=== PATIENT | female | born 1995 | race African-American/Black ===

== ENCOUNTER 2016-11-24 04:09 | Inpatient (IN) | payer OTHER ==
[2016-11-24] MEDS ORDERED: OXYTOCIN/DEXTROSE 5%-WATER 30 UNITS/500 ML BAG IV ONE ×2 (04:42→15:03)
[2016-11-24] MEDS ORDERED: RINGER'S SOLUTION,LACTATED 1,000 ML IV ONE (04:42)
[2016-11-24] MEDS ORDERED: LIDOCAINE HCL 50 ML VIAL PERI PRN (04:42)
[2016-11-24] MEDS ORDERED: DEXTROSE 5%-LACTATED RINGERS 500 ML IV PRN (04:43)
[2016-11-24] MEDS: DEXTROSE 5%-LACTATED RINGERS 1,000 ML IV PRN ×2 (05:30→10:11)
[2016-11-24] MEDS ORDERED: ONDANSETRON HCL/PF 2 MG/ML VIAL IV PRN ×2 (08:31→09:35)
[2016-11-24] MEDS: RINGER'S SOLUTION,LACTATED 1,000 ML IV PRN ×2 (08:47→13:28)
--- NOTE | 2016-11-24 09:19 | PN ---
Progess Note - Interim Narrative: 11/24/16 09:17 Subjective-feeling uncomfortable with contractions Objective- SVE- 4/80/-2, amniotomy performed, clear fluid with bloody show FHTs- 120s, moderate variability, no decelerations, positive accelerations [place]- q 2 minutes Assessment and plan- Labor- spontaneous GBS status- neg Continue current plan of care.
[2016-11-24] MEDS ORDERED: BUPIVACAINE HCL/0.9 % NACL/PF 250 ML EP PRN (09:35)
[2016-11-24] MEDS ORDERED: NALOXONE HCL 1 MG/1 ML SYRG IV PRN (09:35)
[2016-11-24] MEDS ORDERED: fentaNYL CITRATE/PF 50 MCG/ML AMPUL IT SCH (09:45)
--- NOTE | 2016-11-24 10:10 | OR ---
Anesthesia Procedure Note - Anesthesia Procedure Note Narrative: Vital Signs - Last Taken Temp 36.7 C 11/24/16 09:36 Pulse 73 11/24/16 09:36 Resp 18 11/24/16 09:36 BP 116/72 11/24/16 09:36 Pulse Ox 99 11/24/16 09:36 11/24/16 10:09 ANESTHESIA PROCEDURE NOTE Date of Procedure: 11/24/2016 Time of procedure: 0950. Performed by: Vinicio Roque CRNA Registered Representative: None. Preprocedure diagnosis: Active labor. Post procedure diagnosis: Same. Procedure: Insertion of labor epidural. Indications: The patient is a 20 -year-old prima para female in active labor requesting labor epidural for pain management. Findings: See below. Details of the procedure: The patient was placed in a sitting position. Back was prepped with DuraPrep. Patient was then draped in a sterile fashion. Lidocaine 1% was infiltrated to the skin and subcutaneous tissues at the level of the L3 4 interspace. The epidural space was identified using a 18-gauge Tuohy needle with [id number] technique. 20 mcg fentanyl was given intrathecally using a 27 ga. spinal needle. Epidural catheter was inserted without difficulty. Negative test dose was elicited using 5 mL of 1.5% preservative-free lidocaine plus epinephrine 1 200,000. The epidural catheter was then taped and secured in place. EBL: Minimal. Fluids: N/A. Specimen: N/A. Post procedure condition: The patient tolerated the procedure well. No complications were noted. Thank you for this consultation. Olsen CRNA
[2016-11-24] MEDS ORDERED: CALCIUM CARBONATE 500 MG TAB.CHEW PO PRN (11:55)
[2016-11-24] MEDS ORDERED: GLYCERIN/WITCH HAZEL LEAF 40 APPL BOX TP PRN (15:03)
[2016-11-24] MEDS ORDERED: BENZOCAINE/MENTHOL 81 SPRAY CAN TP PRN (15:03)
[2016-11-24] MEDS ORDERED: BISACODYL 10 MG SUPP.RECT RC PRN (15:03)
[2016-11-24] MEDS ORDERED: SENNOSIDES 8.6 MG TABLET PO PRN (15:03)
[2016-11-24] MEDS ORDERED: HYDROCORTISONE 30 APPL TUBE TP PRN (15:03)
[2016-11-24] MEDS ORDERED: oxyCODONE HCL/ACETAMINOPHEN 1 TAB TABLET PO PRN ×2 (15:03)
--- NOTE | 2016-11-24 15:08 | OR ---
Operative Report - Dictated Report Narrative: Spontaneous Vaginal Delivery Viable female with APGARS of 9 at 1 min and 9 at 5 min. Delivered with 1437. Presentation was ROCIO. Loose nuchal cord was reduced and anterior and posterior shoulder delivered without difficulty followed by the remainder of the baby. The baby was placed on the maternal abdomen. The cord was clamped and cut after ~60 seconds. Weight: 2900grams, 6 lbs 6.2 oz Placenta was delivered spontaneously and intact. 1st degree midline vaginal and BL periurethral lacerations that are hemostatic without repair. Estimated blood loss: 150 ml Mother and baby tolerated delivery well. History for Definition: * The number of deliveries resulting in a live the patient experienced prior to current hospitalization * The previous delivery of live twins or any live multiple gestation is considered one live event. *If primagravida or nulliparous is documented select zero for the number of previous live births. Live Events: 0
[2016-11-24] MEDS: CEFOXITIN SODIUM 2 GM in DEXTROSE 5 % IN WATER 100 ML IV SCH ×4 (15:33→20:48)
[2016-11-24 17:17] LABS: Hematocrit 31.4 % (37.0-47.0); Hemoglobin 10.5 gm/dL (12.5-16.0); Mean Cell Volume 82.2 fl (78-100); Mean Corpuscular Hemoglobin 27.5 pg (27-31); Mean Corpuscular Hgb Conc 33.4 g/dl (32-36); Mean Platelet Volume 8.8 fl (6.0-9.5); Platelet Count 195 K/mm3 (150-450); Red Blood Count 3.82 M/mm3 (4.2-5.4)
[2016-11-24 17:24] LABS: Total Cells Counted 100
[2016-11-24 17:52] LABS: Band 9 % (0-2.0); Immature Granulocyte 3 (0-1); Lymphocyte 6 % (20-51); Monocyte 11 % (0-9); Neutrophil 71 % (42-75); Neutrophil # 11.4 K/mm3 (1.3-6.0)
[2016-11-24 17:53] LABS: Dohle Bodies 1+; Toxic Granulation Trace
[2016-11-24 17:54] LABS: Platelet Estimate Normal (NORMAL); RBC Morphology Normal (NORMAL)
[2016-11-24] MEDS: DOCUSATE SODIUM 100 MG CAPSULE PO SCH (20:46)
[2016-11-24] MEDS: IBUPROFEN 800 MG TABLET PO PRN (23:58)
[2016-11-25] MEDS: CEFOXITIN SODIUM 2 GM in DEXTROSE 5 % IN WATER 100 ML IV SCH ×4 (03:09→09:41)
[2016-11-25] MEDS: DOCUSATE SODIUM 100 MG CAPSULE PO SCH ×2 (09:41→21:38)
--- NOTE | 2016-11-25 13:22 | PN ---
Subjective - Date and Time Seen Date: 11/25/16 Subjective Narrative: day 1, s/p currently on cefoxitin 2 q6h for fever in labor. afebrile today. no complaints. breast feeding. normal lochia. ambulating well. Objective - Vitals Vitals: Last Vital Signs Temp 36.8 C 11/25/16 09:57 Pulse 83 11/25/16 09:57 Resp 18 11/25/16 09:57 BP 101/53 11/25/16 09:57 Pulse Ox 99 11/25/16 09:57 - Abnormal Lab Findings Abnormal Lab Findings: Abnormal Lab Results 11/24/16 Range/Units 15:18 WBC 16.0 H (4.0-10.5) K/mm3 RBC 3.82 L (4.2-5.4) M/mm3 Hgb 10.5 L (12.5-16.0) gm/dL Hct 31.4 L (37.0-47.0) % Band Neuts % (Manual) 9 H (0-2.0) % Lymphocytes % (Manual) 6 L (20-51) % Monocytes % (Manual) 11 H (0-9) % Immature Granulocytes 3 H (0-1) Neutrophils # (Manual) 11.4 H (1.3-6.0) K/mm3 Lymphocytes # (Manual) 1.0 L (1.5-3.5) k/mm3 Monocytes # (Manual) 1.8 H (0.0-1.0) k/mm3 - Exam Constitutional: Present: Alert, Oriented x3, Cooperative Respiratory: Present: no respiratory distress Cardiovascular/Chest: Present: normal peripheral pulses Abdomen: Present: soft, nontender, nondistended, other - fundus firm below umbilicus Extremity: Present: normal range of motion, non-tender, normal inspection Skin Exam: Present: normal color, warm/dry, no cyanosis Eye contact: Present: cooperative, good eye contact, normal speech Cauti Physician Documentation - Urinary Catheter Management Urethral ([place]) Date of Insertion: 11/24/16 Time of Insertion: 10:49 Date of Removal: 11/24/16 Time of Removal: 14:25 Assessment/Plan Plan Narrative: A: PPD#1, s/p , on cefoxitin 2 g q6h for fever in labor, received 4 doses now. currently afebrile and stable. Plan: will stop antibiotic. routine care. ambulation encouraged. Merly Garrett MD
[2016-11-26] MEDS ORDERED: ACETAMINOPHEN 325 MG TABLET PO STA (04:33)
[2016-11-26 05:44] LABS: Urine Bilirubin Negative (NEGATIVE); Urine Blood 250 /ul (NEGATIVE); Urine Ketone Negative (NEGATIVE); Urine Nitrite Negative (NEGATIVE); Urine Protein Negative (NEGATIVE); Urine Urobilinogen Normal (NORMAL)
[2016-11-26 06:14] LABS: Urine Appearance Clear; Urine Bacteria None Seen; Urine Color Yellow; Urine WBC 0-5 /hpf (0-5)
[2016-11-26] MEDS: DOCUSATE SODIUM 100 MG CAPSULE PO SCH ×2 (11:14→22:03)
[2016-11-26 11:27] LABS: Hematocrit 29.2 % (37.0-47.0); Hemoglobin 9.8 gm/dL (12.5-16.0); Mean Cell Volume 83.2 fl (78-100); Mean Corpuscular Hemoglobin 27.9 pg (27-31); Mean Corpuscular Hgb Conc 33.6 g/dl (32-36); Mean Platelet Volume 8.7 fl (6.0-9.5); Neutrophil # 8.6 K/mm3 (1.3-6.0); Platelet Count 174 K/mm3 (150-450); Red Blood Count 3.51 M/mm3 (4.2-5.4); Red Cell Distribution Width 14.2 % (11.5-14.0); White Blood Count 10.7 K/mm3 (4.0-10.5)
[2016-11-26] MEDS: ACETAMINOPHEN 325 MG TABLET PO PRN ×3 (11:30→20:02)
--- NOTE | 2016-11-26 14:13 | PN ---
Subjective - Date and Time Seen Date: 11/26/16 Subjective Narrative: day 2, s/p with fever. was started on cefoxitin 2 g iv q6h x 4 doses after delivery for low grade fever noted after delivery. was afebrile on PPD#1 and cefoxitin was discontinued on PPD#1. developed high fever 39.2 at 4:24 am today. had a headache with the fever. fever subsided after taking tylenol. denies perineum pain(first degree lac and periurethral laceration repaired), urinary symptoms, breast symptoms (except nipple pain from breast feeding). admitted to throat itching and discomfort, but no major sore throat. had sick contact with a 7-year-old cousin who visited her after delivery and who turned out to have a strep throat. patient's father may have a cold and she had hugged him. she is . has normal lochia. has no other complaints. Objective - Vitals Vitals: Last Vital Signs Temp 38.2 C H 11/26/16 13:05 Pulse 120 H 11/26/16 13:05 Resp 18 11/26/16 13:05 BP 107/61 11/26/16 13:05 Pulse Ox 98 11/26/16 13:05 - Abnormal Lab Findings Abnormal Lab Findings: Abnormal Lab Results 11/26/16 11/26/16 Range/Units 05:22 11:23 WBC 10.7 H D (4.0-10.5) K/mm3 RBC 3.51 L (4.2-5.4) M/mm3 Hgb 9.8 L (12.5-16.0) gm/dL Hct 29.2 L (37.0-47.0) % RDW 14.2 H (11.5-14.0) % Immature Gran % (Auto) 0.70 H (0.001-0.429) % Immature Gran # (Auto) 0.07 H (0.000-0.0310) K/mm3 Neutrophils % 80.0 H (42-75.0) % Lymphocytes % 7.4 L (20-51) % Monocytes % 11.2 H (0.0-9) % Neutrophils # 8.6 H (1.3-6.0) K/mm3 Lymphocytes # 0.8 L (1.5-3.5) k/mm3 Monocytes # 1.2 H (0.0-1.0) k/mm3 Urine Blood 250 H (NEGATIVE) /ul Urine RBC 5-10 H (0-5) /hpf Urine Comment Culture ordered L - Exam Constitutional: Present: Alert, Oriented x3, Cooperative ENT Exam: Present: pharyngeal erythema Breasts: Present: Nontender, Other - normal, no erythema, no lump or induration. Nipples normal Respiratory: Present: lungs clear, normal breath sounds, no respiratory distress , No rales, No wheezing Cardiovascular/Chest: Present: regular rate, rhythm, no murmur Abdomen: Present: soft, nontender, nondistended, other - fundus firm, non- tender and below umbilicus. no CVA tenderness /Rectal: Present: Other - exam deferred due to no discomfort Extremity: Present: non-tender, normal inspection, no pedal edema, no calf tenderness Skin Exam: Present: normal color, warm/dry, no cyanosis Appearance: Present: appropriate appearance Eye contact: Present: cooperative, good eye contact, normal speech Cauti Physician Documentation - Urinary Catheter Management Urethral ([place]) Date of Insertion: 11/24/16 Time of Insertion: 10:49 Date of Removal: 11/24/16 Time of Removal: 14:25 Assessment/Plan Plan Narrative: Placental culture: no growth preliminary. CXR: negative. A/P: PPD#2, s/p with high fever 39.2. Sources of fever unknown: Unlikely from uterus, UTI, breast or wound (perineum repair). Most likely cause of fever: upper respiratory infection. Most likely due to viral infection. CBC showed elevated monocytes. Blood culture and urine culture sent. Strep test and respiratory panel sent. will hold antibiotics for now. tylenol for fever. continue if peds allowed. routine care. will not discharge patient until 24 hour afebrile. Merly Garrett MD
[2016-11-26] MEDS: IBUPROFEN 800 MG TABLET PO PRN (17:28)
[2016-11-27] MEDS: IBUPROFEN 800 MG TABLET PO PRN ×3 (01:44→23:55)
[2016-11-27 08:04] LABS: Hematocrit 30.6 % (37.0-47.0); Hemoglobin 10.1 gm/dL (12.5-16.0); Mean Cell Volume 84.3 fl (78-100); Mean Corpuscular Hemoglobin 27.8 pg (27-31); Neutrophil % 80.3 % (42-75.0); Platelet Count 183 K/mm3 (150-450); Red Blood Count 3.63 M/mm3 (4.2-5.4); Red Cell Distribution Width 14.4 % (11.5-14.0); White Blood Count 8.7 K/mm3 (4.0-10.5)
[2016-11-27 08:20] LABS: Albumin * 2.4 gm/dl (3.4-5.0); Anion Gap 13.9 mmol/L (6.8-13.8); Bilirubin, Total 0.4 mg/dL (0.0-1.1); Ca. Corrected For Albumin 9.2 mg/dL (8.4-10.2); Calcium * 8.2 mg/dL (7.9-10.9); Carbon Dioxide 24.8 mmol/L (24-32.6); Potassium 3.7 mmol/L (3.4-4.6); Total Protein 6.7 gm/dL (6.2-8.2)
[2016-11-27] MEDS: DOCUSATE SODIUM 100 MG CAPSULE PO SCH ×2 (11:38→22:53)
--- NOTE | 2016-11-27 14:17 | PN ---
Subjective - Date and Time Seen Date: 11/27/16 Subjective Narrative: day 3, s/p with fever on PPD 0-2, afebrile today. received cefoxitine 2 g iv q6h x 2 doses after delivery for fever noted after delivery, discontinued on PPD#1. temp max on PPD#2: 39.4 at 17:41 (11/26/09) afebrile since last night at 19:50. source of fever: unknown, likely due to URI (viral). had some throat itching and discomfort yestereday, but resolving now. no complains of breast, UTI, or wound (perineum repair) symptoms. Rapid strep test: negative respiratory panels all negative, including chamydia pneumonae, adenovirus, influenza A and B, RSV, rhinovirus. placenta culture: no growth urine and blood culture: no growth (preliminary) CXR: normal patient is doing much better. no complaints. . normal lochia. Objective - Vitals Vitals: Last Vital Signs Temp 37.6 C H 11/27/16 12:00 Pulse 95 11/27/16 08:13 Resp 18 11/27/16 08:13 BP 91/55 11/27/16 08:13 Pulse Ox 100 11/27/16 08:13 - Abnormal Lab Findings Abnormal Lab Findings: Abnormal Lab Results 11/27/16 11/27/16 Range/Units 07:58 07:58 RBC 3.63 L (4.2-5.4) M/mm3 Hgb 10.1 L (12.5-16.0) gm/dL Hct 30.6 L (37.0-47.0) % RDW 14.4 H (11.5-14.0) % Immature Gran % (Auto) 0.90 H (0.001-0.429) % Immature Gran # (Auto) 0.08 H (0.000-0.0310) K/mm3 Neutrophils % 80.3 H (42-75.0) % Lymphocytes % 7.1 L (20-51) % Monocytes % 10.8 H (0.0-9) % Neutrophils # 7.0 H (1.3-6.0) K/mm3 Lymphocytes # 0.6 L (1.5-3.5) k/mm3 Anion Gap 13.9 H (6.8-13.8) mmol/L ALT 18 L (19-67) U/L Albumin 2.4 L (3.4-5.0) gm/dl - Exam Constitutional: Present: Alert, Oriented x3, Cooperative Respiratory: Present: lungs clear, normal breath sounds, no respiratory distress , no accessory muscle use Abdomen: Present: soft, nontender, nondistended, other - fundus firm and non- tender. no CVA tenderness. Extremity: Present: normal range of motion, no pedal edema, no calf tenderness Skin Exam: Present: normal color, warm/dry, no cyanosis Appearance: Present: appropriate appearance Eye contact: Present: cooperative, good eye contact, normal speech Cauti Physician Documentation - Urinary Catheter Management Urethral ([place]) Date of Insertion: 11/24/16 Time of Insertion: 10:49 Date of Removal: 11/24/16 Time of Removal: 14:25 Assessment/Plan Plan Narrative: A/P: PPD#3, s/p with fever day 0-2, afebrile today. s/p cefoxitin 2 g iv q6h x 4 doses after delivery. Source of fever unknown, likely viral URI. no evidence of chorioamnionitis, endometritis, UTI, mastitis etc all tests negative, including CXR, blood/urine/placenta culture, Strep A, influenza A and B etc. will be OK for discharge if afebrile x 24 hours. possible discharge tonight. Merly Garrett MD
[2016-11-27] MEDS: ACETAMINOPHEN 325 MG TABLET PO PRN ×2 (15:24→19:30)
[2016-11-27 16:50] LABS: Urine Appearance Cloudy; Urine Bilirubin Negative (NEGATIVE); Urine Color Yellow
[2016-11-27 16:51] LABS: Urine Blood 250 /ul (NEGATIVE); Urine Ketone Negative (NEGATIVE); Urine Nitrite Negative (NEGATIVE); Urine Protein 30 mg/dL (NEGATIVE); Urine Specific Gravity 1.015 SP.GR. (1.005-1.010); Urine Urobilinogen Normal (NORMAL); Urine pH 8.5 pH (5.0-7.0)
[2016-11-27 16:52] LABS: Urine WBC >50 /hpf (0-5)
[2016-11-27 16:53] LABS: Urine Bacteria 1+
[2016-11-27 21:17] LABS: Urine Appearance Slightly Cloudy; Urine Color Yellow
[2016-11-27 21:18] LABS: Urine Bilirubin Negative (NEGATIVE); Urine Nitrite Negative (NEGATIVE); Urine Protein 100 mg/dL (NEGATIVE); Urine Specific Gravity 1.025 SP.GR. (1.005-1.010); Urine Urobilinogen Normal (NORMAL)
[2016-11-27 21:19] LABS: Urine Bacteria None Seen; Urine Blood 10 /ul (NEGATIVE); Urine Ketone 5 mg/dL (NEGATIVE); Urine WBC 0-5 /hpf (0-5)
[2016-11-27 21:22] LABS: Urine RBC 0-5 /hpf (0-5)
--- NOTE | 2016-11-27 22:27 | CONS ---
[facility] - General Date of Service: 11/27/16 Narrative: Ms. Baker is a 20-yr-old AA female pt of Dr. Clarisse Ruiz whom FM/IM is consulted on for persistent fevers with unrevealing diagnostic testing/labs and is PPD #3. Pt's history indicate she had a successful vaginal delivery here at [facility] on 11/24/16. It is reported at the end of labour, she was febrile with a temp of 38.9 and fevers have been persistent and off and on since then. According to Dr. Garrett, the evaluation and work-up for sources of infection have been unrevealing this far. She has received a total of 4 doses of empiric IV antibiotics with Cefotixin 2 g. The last fever she had was 39.1 at 19.45. Her WBC has been trending down; 16.0--->10.7---> 8.7 & all other lab- work have been unremarkable. The preliminary blood culture results do not show any pathogens. Source: patient Exam Limitations: no limitations - History of Present Illness Timing/Duration: other - fevers for the past 3 days of hospitalization. Severity: mild Modifying Factors - (Worsens): Reports: medication Associated Symptoms: fever/chills, headaches, other - night sweats Allergies/Adverse Reactions: Allergies No Known Allergies Allergy (Verified 11/24/16 04:17) Home Medications: Home Medications Medication Instructions Recorded Last Taken Ferrous Sulfate [Iron] 325 mg PO DAILY 11/24/16 11/23/16 Vits96/Iron Fum/Folic 1 tab PO DAILY 11/24/16 11/23/16 [ S] - Patient's Past Medical History Patient History - Medical: Anxiety, Depression Patient History - Cardiac/Respiratory: No pertinent hx Patient History - Cancer: No Hx of Cancer Patient History - Surgical Procedures: No surgical history Patient History - Other: None LMP (females 10-50): this week - Family History Father Family History - Medical: No pertinent hx Mother Family History - Medical: No pertinent hx - Social History Living Situations: significant other Abuse History: No History of abuse Psych History: Hx of Anxiety, Hx of Depression Does anyone smoke in the home?: No Smoking Status: Never smoker Medications - Medications Current Medications: Current Medications Acetaminophen (Tylenol) 650 mg PO Q4H PRN PRN Reason: Fever Stop: 12/26/16 11:02 Last Admin: 11/27/16 19:30 Dose: 650 mg Benzocaine/Menthol (Dermoplast [place]) 1 spray TP PRN PRN PRN Reason: Perineal discomfort Stop: 12/24/16 15:04 Last Admin: 11/24/16 19:31 Dose: 1 spray Docusate Sodium (Colace) 100 mg PO BID BOUBACAR Stop: 12/24/16 21:01 Last Admin: 11/27/16 11:38 Dose: Not Given Oxytocin/Dextrose (Pitocin 30 Units/D5w 500 Ml) 30 units in 500 mls @ 1 mls/hr IV PRN ONE PRN Reason: Protocol Stop: 12/15/16 00:41 Last Admin: 11/24/16 05:48 Dose: 2 mls/hr Oxytocin/Dextrose (Pitocin 30 Units/D5w 500 Ml) 30 units in 500 mls @ 1 mls/hr IV PRN ONE Stop: 12/15/16 11:02 Last Admin: 11/25/16 09:40 Dose: Not Given Ibuprofen (Motrin) 800 mg PO Q6H PRN PRN Reason: Mild pain Stop: 12/24/16 15:04 Last Admin: 11/27/16 17:48 Dose: 800 mg Senna (Senokot) 8.6 mg PO BID PRN PRN Reason: Constipation Stop: 12/24/16 15:04 Last Admin: 11/27/16 17:01 Dose: 8.6 mg Witch Virgie/Glycerin (Tucks Medicated Pads) 1 appl TP PRN PRN PRN Reason: Perineal discomfort Stop: 12/24/16 15:04 Last Admin: 11/24/16 19:31 Dose: 1 appl Review of Systems - Review of Systems Generalized/Overall Review: Present: Chills, Fever. Absent: Weakness, Malaise, Diaphoresis, Weight loss EENTM: Present: Ear Pain. Absent: Blurred Vision, Double Vision, Ear Discharge , Nose Congestion Respiratory: Absent: Cough, Shortness of Breath, Orthopnea Cardiac: Absent: Chest Pain, Edema, Palpitations Abdominal: Absent: Nausea, Vomiting, Hematemesis, Abdominal Pain, Constipation, Diarrhea Genitourinary: Absent: Burning, Itching, Urgency, Frequency Musculoskeletal: Absent: Joint Pain, Back Pain, Joint Swelling, Muscle Pain, Neck Pain Neurological: Present: Headache - one episode of PHIPPS after the fever., Anxiety, Depressed. Absent: Numbness, Tingling Skin: Absent: Dryness, Lesions, Lumps, Rash, Bruising Endocrine: Present: No Symptoms Reported Misc: All systems neg except as marked Physical Examination - Exam Vital Signs: Vital Signs - Last Taken Temp 37.1 C 11/27/16 20:50 Pulse 118 H 11/27/16 19:46 Resp 16 11/27/16 19:46 BP 103/53 11/27/16 19:46 Pulse Ox 99 11/27/16 19:46 O2 Oxygen Delivery Method Room Air Constitutional: Present: Alert, Oriented x3, Cooperative, No distress ENT Exam: Present: other - Both RT and LT Ear canal erythema. Absent: nasal congestion, nasal drainage, pharyngeal erythema Eye Exam: bilateral eye: normal inspection, PERRL Neck: Present: non-tender, full range of motion, supple, normal inspection. Absent: lymphadenopathy (R), lymphadenopathy (L) Breasts: Present: Exam deferred Respiratory: Present: lungs clear, no accessory muscle use, No rales Cardiovascular/Chest: Present: normal peripheral pulses, regular rate, rhythm, no chest tenderness, no edema, no murmur Abdomen: Present: Normal bowel sounds, soft, nontender /Rectal: Present: Exam deferred Extremity: Present: non-tender, normal inspection, no pedal edema. Absent: calf tenderness Skin Exam: Present: warm/dry, no cyanosis Lymphatic: Present: no adenopathy Neurologic: Present: no motor/sensory deficits, alert, normal mood/affect, oriented x 3 Appearance: Present: appropriate appearance, appropriate insight Eye contact: Present: cooperative, good eye contact, normal speech Thoughts: Present: normal thought pattern, no apparent hallucination - Results and Findings: Lab/Microbiology results last 24 hrs: Abnormal/Pending Laboratory Last 24 HRS 11/27/16 11/27/16 11/27/16 21:00 16:34 07:58 RBC Hgb Hct RDW Immature Gran % (Auto) Immature Gran # (Auto) Neutrophils % Lymphocytes % Monocytes % Neutrophils # Lymphocytes # Anion Gap 13.9 H ALT 18 L Albumin 2.4 L Urine Protein 100 H 30 H Urine Blood 10 H 250 H Prot Sulfosalicylic Acd 4+ H Ur Leukocyte Esterase 75 H Urine RBC 10-25 H Urine WBC >50 H Urine Bacteria 1+ H 11/27/16 07:58 RBC 3.63 L Hgb 10.1 L Hct 30.6 L RDW 14.4 H Immature Gran % (Auto) 0.90 H Immature Gran # (Auto) 0.08 H Neutrophils % 80.3 H Lymphocytes % 7.1 L Monocytes % 10.8 H Neutrophils # 7.0 H Lymphocytes # 0.6 L Anion Gap ALT Albumin Urine Protein Urine Blood Prot Sulfosalicylic Acd Ur Leukocyte Esterase Urine RBC Urine WBC Urine Bacteria Culture 11/24/16 15:05 - Final No Growth 11/24/16 15:05 - Final Maternal No Growth 11/26/16 05:22 Urine Culture - Preliminary Urine,Clean Catch No Growth 11/26/16 05:00 Blood Culture - Preliminary Blood NO GROWTH 24 HOURS - Assessments/Findings (1) Pyrexia of unknown origin following delivery Diagnosis(s): Pt is a 20-yr old AA female who has had persistent fevers since delivery and the Diagnostic work-up & evaluation for infections by Dr. Garrett have been negative. Additionally the CXR, and viral respiratory panel were done and they were non-acute. The fevers do not seem to have any pattern but they have been present for the last 3 days during hospitalization. She reports that the only ill contact she had was her 8-yr old niece that she shared bed with prior to coming to the hospital and was found to have strep throat the following day. She states that the fevers are accompanied by RT & LT earache and she first noticed the aching yesterday. She cannot recall if she has continued to have earache as, before & after the fevers, she has felt very fatigued. With today's fevers, she says that she actually 'felt better' than any other day. On physical exam, she is noted to have have erythema on RT & LT earcanal and therefore otitis externa/media could be the cause of fevers and will start her on Augmentin. In trying to determine other sources of fevers, she denies any recent surgery, outside the country travel, insect/tick bites, recreational drug use, STDs abdominal disorders,recreational drug use. Family history is non-contributory of autoimmune or malignancy disease as she was adopted. She lacks the triad symptoms: headache, neck stiffness & Altered Mental Status to cause suspicion of bacterial/viral meningitis but will check CRP level. Since she had epidural catheter placement during delivery, this is a risk factor for Spinal Epidural Abscess (SEA). Although, the risk has been reported to be lower when catheters are placed for shorter periods as in obstetrical cases. She has no neurological deficits and no back pain, but with her persistent fevers, it is important to note the the initial clinical manifestation of SEA can be non- specific and may begin with fevers. Will therefore check ESR level first to determine the need for an urgent MRI. Should the above tests come back negative and fevers persist , other evaluation of non-infectious inflammatory source in a young adult can include: REGGIE, & Rheumatoid factor. The next approach is watchful waiting as the fevers may resolve spontaneously or if fevers persist, it may take several weeks of investigation until definite diagnosis and at that point, consultation with ID, Legal Collector or facilities assistant/onc. may be considered. It is important to note that pts who remain undiagnosed after an extensive evaluation generally have good prognosis. Problem: Acute (2) Otitis externa Diagnosis(s): RT & LT ear canal noted to be erythemic. Due to fevers, Will start Augmentin 875 /125 b.i.d x 10 days. Problem: Acute
[2016-11-27] MEDS: AMOX TR/POTASSIUM CLAVULANATE 875 MG TABLET PO SCH (22:57)
[2016-11-28] MEDS: ACETAMINOPHEN 325 MG TABLET PO PRN ×3 (01:54→19:23)
[2016-11-28] MEDS: IBUPROFEN 800 MG TABLET PO PRN ×2 (05:59→18:20)
[2016-11-28 08:29] LABS: Hematocrit 30.5 % (37.0-47.0); Hemoglobin 10.1 gm/dL (12.5-16.0); Mean Cell Volume 83.3 fl (78-100); Mean Corpuscular Hemoglobin 27.6 pg (27-31); Mean Corpuscular Hgb Conc 33.1 g/dl (32-36); Mean Platelet Volume 8.9 fl (6.0-9.5); Platelet Count 189 K/mm3 (150-450); Red Blood Count 3.66 M/mm3 (4.2-5.4); Red Cell Distribution Width 14.4 % (11.5-14.0); White Blood Count 8.3 K/mm3 (4.0-10.5)
[2016-11-28 08:35] LABS: Total Cells Counted 100
[2016-11-28 08:53] LABS: Atypical (Reactive) Lymph 1 % (0-2); Band 12 % (0-2.0); Eosinophil 1 % (0-3); Immature Granulocyte 1 (0-1); Lymphocyte 18 % (20-51); Monocyte 4 % (0-9); Neutrophil 63 % (42-75); Neutrophil # 5.2 K/mm3 (1.3-6.0)
[2016-11-28 09:03] LABS: Microcytosis 1+; Platelet Estimate Normal (NORMAL); Spherocyte Trace
[2016-11-28] MEDS: DOCUSATE SODIUM 100 MG CAPSULE PO SCH ×2 (09:23→20:55)
[2016-11-28] MEDS: AMOX TR/POTASSIUM CLAVULANATE 875 MG TABLET PO SCH (09:23)
--- NOTE | 2016-11-28 12:42 | PN ---
Subjective - Date and Time Seen Date: 11/28/16 Subjective Narrative: day 4, s/p with persistent fever on PPD 0-3, afebrile today. usually spiked a high fever in the afternoon. Tmax 39.5 yesterday afternoon. received cefoxitine 2 g iv q6h x 2 doses after delivery for fever noted after delivery, discontinued on PPD#1. afebrile since last night at 19:46. received one dose of tylenol 650 mg at 1:54 and one dose of ibuprofen 800 mg at 5:59 today. patient feels well overall without major complaints. was having throat itching and discomfort 2 days ago, but has resoved. denies complains of pelvic pain, perineum pain, back pain, breast pain, or UTI symptoms. is . has normal lochia. baby is doing well, s/p antibiotics. source of fever: unknown, likely due to viral URI. I had requested consultation from hospitalist last night in conjunction with early childhood education instructor doctor, Dr. Monroe. patient was started on augmentin by the hospitalist BRIANNE Pollard last night for suspicion of otitis media. Dr. Monroe saw and examined the patient today. He said there was no signs of ear infection and this is likely viral infection; he would like to discontinue the antibiotics. Tests were all negative so far. white count returned to normal. Strep screen: negative respiratory panels all negative, including chamydia pneumonae, adenovirus, influenza A and B, RSV, rhinovirus. Dare screen: negative placenta culture: no growth urine and blood culture: no growth CXR: normal Objective - Vitals Vitals: Last Vital Signs Temp 37.9 C H 11/28/16 12:00 Pulse 100 11/28/16 12:00 Resp 20 11/28/16 12:00 BP 106/62 11/28/16 12:00 Pulse Ox 99 11/28/16 12:00 - Abnormal Lab Findings Abnormal Lab Findings: Abnormal Lab Results 11/27/16 11/27/16 11/28/16 Range/Units 16:34 21:00 08:15 RBC 3.66 L (4.2-5.4) M/mm3 Hgb 10.1 L (12.5-16.0) gm/dL Hct 30.5 L (37.0-47.0) % RDW 14.4 H (11.5-14.0) % Band Neuts % (Manual) 12 H (0-2.0) % Lymphocytes % (Manual) 18 L (20-51) % ESR (0-15) mm/hr C-Reactive Prot, Quant (0.0-0.9) mg/dL Urine Protein 30 H 100 H (NEGATIVE) mg/dL Urine Blood 250 H 10 H (NEGATIVE) /ul Prot Sulfosalicylic Acd 4+ H (0) mg/dL Ur Leukocyte Esterase 75 H (NEGATIVE) /ul Urine RBC 10-25 H (0-5) /hpf Urine WBC >50 H (0-5) /hpf Urine Bacteria 1+ H (NONE) 11/28/16 11/28/16 Range/Units 08:15 08:15 RBC (4.2-5.4) M/mm3 Hgb (12.5-16.0) gm/dL Hct (37.0-47.0) % RDW (11.5-14.0) % Band Neuts % (Manual) (0-2.0) % Lymphocytes % (Manual) (20-51) % ESR 81 H (0-15) mm/hr C-Reactive Prot, Quant 19.4 H (0.0-0.9) mg/dL Urine Protein (NEGATIVE) mg/dL Urine Blood (NEGATIVE) /ul Prot Sulfosalicylic Acd (0) mg/dL Ur Leukocyte Esterase (NEGATIVE) /ul Urine RBC (0-5) /hpf Urine WBC (0-5) /hpf Urine Bacteria (NONE) - Exam Constitutional: Present: Alert, Oriented x3, Cooperative ENT Exam: Present: other - unremarkable per Dr. Monroe Breasts: Present: Other - normal and non-tender Respiratory: Present: lungs clear, normal breath sounds, no respiratory distress , no accessory muscle use, No rales, No wheezing Cardiovascular/Chest: Present: regular rate, rhythm, no murmur Abdomen: Present: Normal bowel sounds, soft, nontender, nondistended, other - fundus firm and non-tender. no pelvic tenderness. no CVA tenderness /Rectal: Present: Other - unremarkable per night nurse Kristy. Extremity: Present: normal range of motion, no pedal edema, no calf tenderness Skin Exam: Present: normal color, warm/dry, no cyanosis Appearance: Present: appropriate appearance Eye contact: Present: cooperative, good eye contact, normal speech Cauti Physician Documentation - Urinary Catheter Management Urethral ([place]) Date of Insertion: 11/24/16 Time of Insertion: 10:49 Date of Removal: 11/24/16 Time of Removal: 14:25 Assessment/Plan Plan Narrative: A/P: PPD#4, s/p with spiking high fever in the afternoon 39.4-39.5 C for three consecutive days after delivery. patient feels well without major complains. physical exam was normal, with no signs of endometritis, mastitis, perineum infection or UTI or pneumonia. all tests were negative so far. source of fever unknown, likely viral URI. Dr. Monroe from [facility] consulted for fever and agreed with possible viral cause. will order pelvic CT to rule out deep septic pelvic thrombophlebitis. management for now: supportive care. Merly Garrett MD
[2016-11-28] MEDS ORDERED: ENOXAPARIN SODIUM 100 MG/ML SYRG SC SCH (19:00)
[2016-11-29] MEDS: ACETAMINOPHEN 325 MG TABLET PO PRN ×2 (02:10→06:14)
[2016-11-29 08:11] LABS: Hematocrit 29.7 % (37.0-47.0); Hemoglobin 9.9 gm/dL (12.5-16.0); Mean Cell Volume 82.3 fl (78-100); Mean Corpuscular Hemoglobin 27.4 pg (27-31); Mean Corpuscular Hgb Conc 33.3 g/dl (32-36); Mean Platelet Volume 8.8 fl (6.0-9.5); Platelet Count 210 K/mm3 (150-450); Red Blood Count 3.61 M/mm3 (4.2-5.4); Red Cell Distribution Width 14.3 % (11.5-14.0)
[2016-11-29 08:43] LABS: Atypical (Reactive) Lymph 1 % (0-2); Band 11 % (0-2.0); Immature Granulocyte 4 (0-1); Lymphocyte 4 % (20-51); Monocyte 9 % (0-9); Neutrophil 72 % (42-75); Neutrophil # 5.2 K/mm3 (1.3-6.0); Total Cells Counted 81
[2016-11-29] MEDS: DOCUSATE SODIUM 100 MG CAPSULE PO SCH (10:07)
--- NOTE | 2016-11-29 11:35 | PN ---
Progess Note - Interim Narrative: 11/29/16 12:13 progress note Subjective: The patient is doing well. She is ambulating, voiding, tolerating by mouth. She denies any pain. She has minimal lochia. Denies any chills, cough, congestion, sore throat, ear pain, congestion, maliase, breast pain or engorgement, rash, pain or swelling in her legs. The patient states she feels really good. Objective: General: No acute distress Lungs: No wheezing, unlabored Abdomen: Soft, nontender, fundus is firm 3 finger breaths below the umbilicus Extremities: minimal edema, nontender to palpation Assessment and plan: day 5 Feeding: Breast Pain: Controlled with by mouth medication fever: Patient has been worked up for origin of fever. Patient clinically is doing very well but continues to spike a fever nearly daily. Pancultures were negative. Viral cultures were negative. Blood work revealed WBCs the opening and in normal range for several days now. CT was essentially negative. Ultrasound revealed possible endometritis versus retained products of conception. Placenta pathology revealed chorioamnionitis. All of these labs and tests were reviewed with the patient in light of her clinical exam. I do not believe the patient has retained products of conception due to her clinical picture. Endometritis is also unlikely due to no uterine tenderness, foul discharge, minimal lochia, and normal WBC. Due to the patient meeting partial criteria for chorioamnionitis, we'll plan to restart antibiotics orally. Family practice has also been consulted and believed to have a viral syndrome. Our working diagnosis at this time is a viral syndrome, septic pelvic thrombophlebitis, and less likely endometritis. We have started Lovenox therapy for septic pelvic thrombophlebitis. Patient is feeling very well and requests to be discharged so that she can be with her baby as her baby was transferred to the NICU this morning. The patient and her partner are very reliable and understand our working diagnoses and the need to continue therapy to better elucidate her diagnosis. Should the [facility] determine a particular pathology, this may impact her diagnosis and treatment. Plan to continue antibiotics and Lovenox. Okay to discharge home. Follow-up in 1-2 days or sooner if symptoms change or worsen. The patient and her partner understand all of this and are willing to follow these instructions. This case was also discussed with Dr. Chaudhry who agrees with discharge. Routine care with close follow-up in 1-2 days. 11/29/16 12:15
[2016-11-29 12:59] VITALS: BP 102/55
== END 2016-11-29 11:30 | disposition home or self-care (01) | DRG 774 ==
LOC: OBCLINIC 04:09 → OB 04:41 → MS 11-25 09:21
PROVIDERS: ADMIT Obstetrics & Gynecology Gynecologic Oncology; ATTEND Obstetrics & Gynecology Gynecologic Oncology
PROC: 10E0XZZ Delivery of Products of Conception, External Approach (ICD-10-PCS; principal; 2016-11-24)
PROC: 10907ZC Drainage of Amniotic Fluid, Therapeutic from Products of Conception, Via Natural or Artificial Opening (ICD-10-PCS; 2016-11-24)
PROC: 4A1HXCZ Monitoring of Products of Conception, Cardiac Rate, External Approach (ICD-10-PCS; 2016-11-24)
DX: O69.81X0 Labor and delivery complicated by cord around neck, without compression, not applicable or unspecified (principal); O75.2 Pyrexia during labor, not elsewhere classified; O86.81 Puerperal septic thrombophlebitis; O98.53 Other viral diseases complicating the puerperium; O70.0 First degree perineal laceration during delivery; J06.9 Acute upper respiratory infection, unspecified; Z3A.40 40 weeks gestation of pregnancy; Z37.0 Single live birth
CPT/HCPCS: 36415; 59025; 71020; 74178; 76830; 76856; 80053; 81001; 85007; 85025; 85652; 86140; 86308; 87040; 87070; 87081; 87086; 87430; 87633; 88307; J2405